=== PATIENT | male | born 1995 | race African-American/Black ===

== ENCOUNTER 2018-04-12 23:59 | Emergency (ER) | payer MEDICAID, SELFPAY ==
[2018-04-13] MEDS ORDERED: Fentanyl 100 MCG/2 ML VIAL ONE (00:07)
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
[2018-04-13] MEDS ORDERED: ISOVUE-370 76%-LOCM 1 ML ONE (18:33)
== END 2018-04-13 01:20 | disposition home or self-care (01) ==
LOC: ERS 23:59
DX: S20.219A Contusion of unspecified front wall of thorax, initial encounter (principal); F17.210 Nicotine dependence, cigarettes, uncomplicated; V49.9XXA Car occupant (driver) (passenger) injured in unspecified traffic accident, initial encounter
CPT/HCPCS: 70450; 71260; 72125; 74177; 86850; 86900; 86901; 93005; 96374; G0390; J3010

== ENCOUNTER 2020-11-11 21:12 | Emergency (ER) | payer SELFPAY ==
[2020-11-12 00:56] LABS: SARS-CoV-2 MS2 Positive; SARS-CoV-2 N Gene Positive; SARS-CoV-2 S Gene Positive; SARS-CoV-2 by NAA DETECTED (NotDetected); SARS-CoV-2 orf1ab Positive
== END 2020-11-11 21:44 | disposition home or self-care (01) ==
LOC: ERS 21:12
DX: U07.1 COVID-19 (principal)
CPT/HCPCS: 87635; 99283; U0003

== ENCOUNTER 2021-04-29 17:10 | Emergency (ER) | payer SELFPAY ==
[2021-04-29] MEDS ORDERED: Acetaminophen 500 MG TAB ONE (20:27)
[2021-04-29] MEDS ORDERED: Dexamethasone 4 mg/ml Vial ONE (20:27)
[2021-04-29] MEDS ORDERED: Dexamethasone 4 MG TAB ONE (20:28)
== END 2021-04-29 20:55 | disposition home or self-care (01) ==
LOC: ERS 17:10
DX: J02.0 Streptococcal pharyngitis (principal); K02.9 Dental caries, unspecified; J35.1 Hypertrophy of tonsils
CPT/HCPCS: 99283; J1100; J8540